=== PATIENT | female | born 2005 | race American Indian/Alaskan Native ===

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

== ENCOUNTER 2024-04-02 13:18 | Emergency (ER) | payer OTHER ==
[~2024-04-02] VITALS: Ht 157.5 cm; Wt 71.6 kg
[~2024-04-02 13:18] MED LIST changes: +IRON325 M1 PO; +VITAMIN C500 M1 PO
[2024-04-02] MEDS ORDERED: HYDROXYZINE HCL25 MG PO (14:12)
[2024-04-02 14:30] LABS: BASOPHILS 0.7 % (0-2); EOSINOPHILS 6.6 % (0-6); HEMOGLOBIN 13.6 g/dL (12.0-18.0); MCH 30.2 (27-36); MCHC 33.3 g/dl (30-36); MCV 90.8 fl (81-99); MONOCYTES 15.2 % (0-12); NEUTROPHILS 54.5 % (39-80); PLATELET COUNT 292 K/uL (140-440); RBC 4.51 M/ul (4.3-5.7); RDW 12.8 (10.5-15.0)
[2024-04-02] MEDS ORDERED: ondansetron HCL 4 MG/2 ML VIAL IV ONE ×2 (14:30→15:30)
[2024-04-02 14:47] LABS: ALBUMIN 3.6 g/dL (3.4-5.0); ALBUMIN/GLOBULIN RATIO 1.09 (1.1-2.4); ANION GAP 13.2 (7-21); BILIRUBIN, TOTAL 0.3 ng/dL (0.2-1.0); BUN/CREATININE RATIO 6.45 (6.0-28.6); CALCIUM 8.6 mg/dL (8.5-10.1); CREATININE, SERUM 0.93 mg/dL (0.55-1.02); POTASSIUM 4.2 mmol/L (3.5-5.1); PROTEIN, TOTAL 6.9 g/dL (6.4-8.2)
[2024-04-02 15:14] LABS: BILIRUBIN, URINE NEGATIVE (negative); BLOOD/HGB, URINE NEGATIVE (Negative); KETONE, URINE NEGATIVE (Negative); LEUK ESTERASE, URINE NEGATIVE (negative); NITRITE, URINE NEGATIVE (negative)
[2024-04-02] MEDS ORDERED: KETOROLAC TROMETHAMINE 30 MG/ML VIAL IV ONE (15:30)
[2024-04-02] MEDS ORDERED: SODIUM CHLORIDE 0.9% 1,000 ML IV PRN (15:30)
[2024-04-02 17:29] VITALS: BP 111/82
== END 2024-04-02 17:29 | disposition home or self-care (01) ==
LOC: ED 13:18
PROVIDERS: Emergency Medicine
DX: K52.9 Noninfective gastroenteritis and colitis, unspecified (principal); Z79.899 Other long term (current) drug therapy
CPT/HCPCS: 36415; 74176; 80053; 81003; 83690; 83735; 84703; 85025; 96361; 96374; 96375; 99284-25; J1885; J2405; J7030